=== PATIENT | male | born 1990 | race Caucasian/White ===

== ENCOUNTER 2020-02-17 04:58 | Emergency (ER) | payer SELFPAY ==
--- NOTE | ~2020-02-17 | CT_ITS ---
EXAMINATION: CT soft tissue neck w con DATE: 02/17/2020 06:34 INDICATION: Throat pain TECHNIQUE: Computed tomography (CT) of the neck was performed with 75 mL Omnipaque-350 intravenous co ntrast. Automated exposure control and iterative reconstruction technique were employed. The dose-israel gth product was 644.26 mGy-cm. COMPARISON: None FINDINGS: There is prominent soft tissue swelling of the left parapharyngeal soft tissues centered at the lingu al and palatine tonsils and extending into the soft palate, base of the tongue and the uvula which is deviated towards the right and inferiorly along the left aryepiglottic fold. Soft tissue swelling re sults in moderate narrowing of the pharyngeal airway. There is heterogeneous decreased enhancement of the soft tissues but no clearly defined peripherally enhancing organized abscess. The epiglottis and right aryepiglottic folds remain normal. There is asymmetric soft tissue swelling and heterogeneous enhancement of the left pterygoid muscles and left submandibular gland. Inflammatory stranding is see n into the more peripheral subcutaneous fat along the inferior and lateral margins of the left mandib le. There are multiple asymmetrically enlarged likely reactive left submandibular and jugular chain l ymph nodes. The orbits are normal. The paranasal sinuses, mastoid air cells and middle ear cavities are clear. La rge dental caries with a prominent periapical erosions at the posterior most molars at both the left and right sides of the maxilla. Parotid and thyroid glands are normal. The trachea and visualized por tions of the upper lung zones and superior mediastinum are unremarkable. Minimal cervical spondylosis . IMPRESSION: 1. Left tonsillitis and pharyngitis with prominent soft tissue swelling and likely regions of phlegmo nous change centered at the left lingual and palatine tonsils and extending into the adjacent soft ti ssues as detailed above but without organized peripherally enhancing abscess. 2. Likely reactive left submandibular and jugular chain lymphadenopathy. 3. Large dental caries with periapical erosions at the posterior most molars of both the left and rig ht maxilla. Recommend follow-up dental referral. Reviewed, dictated and finalized at location A. IMPRESSION: 1. Left tonsillitis and pharyngitis with prominent soft tissue swelling and lik roscoe regions of phlegmonous change centered at the left lingual and palatine ton sils and extending into the adjacent soft tissues as detailed above but without organized peripherally enhancing abscess. 2. Likely reactive left submandibular and jugular chain lymphadenopathy. 3. Large dental caries with periapical erosions at the posterior most molars of both the left and right maxilla. Recommend follow-up dental referral.
[2020-02-17 05:05] VITALS: BP 149/96; PULSE 108; RESP 18; TEMP 36.8; O2SAT 100
--- NOTE | 2020-02-17 05:45 | ED.GENADULT ---
HPI - General Adult General Chief complaint: Dental/Oral <DO Nito Coker Last Filed: 02/17/20 05:47> Stated complaint: throats closing, abscess in mouth <DO Nito Coker Last Filed: 02/17/20 05:47> Time Seen by Provider: 02/17/20 05:33 <Willam Kennedy DO - Last Filed: 02/17/20 05:47> Source: RN notes reviewed <Willam Kennedy DO - Last Filed: 02/17/20 05:47> History of Present Illness HPI narrative: Patient presents emergency department from home for dental pain. Patient states that he started to have pain in the left side of his throat yesterday worsened today. He states that he knows he has several bad teeth and felt that he possibly had a dental abscess he went to [place] emergency department and left approximately 2:30 AM this morning. He states there he received antibiotic shot as well as sent home with Augmentin. He states his symptoms worsen he feels that his throat is closing. He states he is able to swallow but it hurts to fully open his mouth. He denies any fevers or chills shortness of breath or any other symptoms <Willam Kennedy DO - Last Filed: 02/17/20 05:47> Related Data Home medications: Home Medications Medication Instructions Recorded Confirmed No Home Medications 02/17/20 02/17/20 <Willam Kennedy DO - Last Filed: 02/17/20 05:47> Allergies/adverse reactions: Allergies Allergy/AdvReac Type Severity Reaction Status Date / Time No Known Allergies Allergy Verified 02/17/20 05:08 <Willam Kennedy DO - Last Filed: 02/17/20 05:47> Review of Systems Review of Systems: Narrative: Gen.: Denies fevers or chills Eyes: Denies eye pain or visual change ENT: See HPI Respiratory: Denies shortness of breath or cough CV: Denies chest pain or palpitations GI: Denies abdominal pain nausea, emesis or diarrhea Musculoskeletal: Denies back pain or muscle pain Neuro: Denies numbness, tingling, weakness or focal weakness Skin: Denies rash Except as documented, all other systems reviewed and negative <Willam Kennedy DO - Last Filed: 02/17/20 05:47> [facility] Past Medical History Medical History: Medical History (Updated 02/17/20 @ 08:43 by Moses Bear MD) Patient denies significant medical history <Willam Kennedy DO - Last Filed: 02/17/20 05:47> Social History Social History: Social History (Updated 02/17/20 @ 05:46 by Willam Kennedy DO) Smoking status: Never smoker <Willam Kennedy DO - Last Filed: 02/17/20 05:47> Exam Narrative: Exam Narrative: APPEARANCE: No acute distress, nontoxic, resting in bed EYES: EOMI HEENT: Normocephalic, atraumatic, TMs clear bilaterally, nares patent, oral mucosa moist, trismus present, large area of swelling over the left peritonsillar region with protrusion of the uvula, mildly muffled voice RESPIRATORY: No respiratory distress Clear to auscultation bilaterally with no rhonchi wheezing or rales. CARDIOVASCULAR: Regular rate and rhythm without murmurs rubs or gallops. ABDOMINAL: Soft, nontender, nondistended, no rebound or guarding MUSCULOSKELETAl: Moves all extremities. No clubbing, cyanosis or edema. NEURO: Awake and alert. Following commands, speech normal, no focal deficits SKIN:: Warm, dry. No rashes lesions or abrasions PSYCHIATRIC: Normal affect/mood, <Willam Kennedy DO - Last Filed: 02/17/20 05:47> Course Course Emergency Course: Discussed case with Dr. Fierro with ENT at [facility], referred to the ER and Dr. Fu has accepted the patient for transfer. NO addiitonal recommendations at this time. Pt reports slight improvement in discomfort and able to sit up. Reports difficulty swallowing but tolerating his oral secretions. <Moses Bear MD - Last Filed: 02/17/20 08:43> Vital Signs Vital signs: Vital Signs Temperature 98.2 F 02/17/20 05:05 Pulse Rate 108 H 02/17/20 05:05 Respiratory Rate 18 02/17/20 05:05 Blo
[2020-02-17 06:02] LABS: Basophils Percent Auto 0.2 % (0.2-1.2); Eosinophils Percent Auto 0.1 % (0-4.4); Immature Granulocyte Absolute 0.08 K/mm3 (0.00-0.031); Immature Granulocyte Percent A 0.5 % (0-0.5); Lymphocytes Absolute Auto 0.69 K/mm3 (0.9-3.2); Mean Corpuscular Hemoglobin 31.1 pg (26-34); Mean Corpuscular Volume 91.3 fl (80-100); Mean Platelet Volume 10.1 fl (7.4-10.4); Monocytes Absolute Auto 1.9 K/mm3 (0.1-0.6); Monocytes Percent Auto 10.9 % (2.6-8.5); Neutrophils Absolute Auto 14.4 K/mm3 (1.3-6.7); Neutrophils Percent Auto 84.3 % (45.5-73.1); Platelet Count Result 227 k/mm3 (150-375); Red Blood Count 5.15 M/mm3 (4.6-6.20); Red Cell Distribution Width 12.2 % (11.5-14.5); White Blood Count 17.1 K/mm3 (4.5-10.0)
[2020-02-17] MEDS: KETOROLAC 30 MG/ML VIAL (*BKC) IV PUSH (06:07)
[2020-02-17] MEDS: SODIUM CHLORIDE 0.9% IV 1,000 ML 999 ML IV CONT (06:08)
[2020-02-17 06:09] LABS: INR 1.1; Prothrombin Time 13.8 Seconds (11.1-14.7)
[2020-02-17 06:10] LABS: Partial Thromboplastin Time 33.9 SECONDS (22.3-36.8)
[2020-02-17 06:12] LABS: Blood Urea Nitrogen 8 mg/dL (9-20); Calcium 9.2 mg/dL (8.4-10.2); Carbon Dioxide 23 mmol/L (22-30); Chloride 99 mmol/L (98-107); Estimated CRCL calculation 92 ml/min; Estimated Glomerular Filt Rate > 60; Glucose 110 mg/dL (75-110); Potassium 4.5 mmol/L (3.4-5.0); Sodium 134 mmol/L (137-145)
--- NOTE | 2020-02-17 07:24 | PC.NURSE ---
Assumed care of patient from Willam. Pt resting on stretcher
[2020-02-17] MEDS: CLINDAMYCIN 900 MG/NS 50 ML 900 MG/50 ML PIGGYBACK 50 MG IVPB (07:46)
[2020-02-17 07:47] VITALS: BP 131/83; PULSE 106; RESP 18; O2SAT 97
[2020-02-17 10:23] VITALS: BP 144/89; PULSE 100; RESP 18; O2SAT 98
== END 2020-02-17 10:25 | disposition short-term general hospital (02) ==
PROVIDERS: Emergency Medicine; Emergency Provider Emergency Medicine
DX: J03.90 Acute tonsillitis, unspecified (principal); K02.9 Dental caries, unspecified; J39.8 Other specified diseases of upper respiratory tract
CPT/HCPCS: 36415; 70491; 80048; 85025; 85610; 85730; 96361; 96365; 96375; 99285; J1100; J1885; J7030; Q9967